=== PATIENT | male | born 1940 | race Caucasian/White ===

== ENCOUNTER 2016-12-05 10:21 | Day surgery (SDC) | payer MEDICARE, BC ==
--- NOTE | 2016-12-02 11:49 | RADIOLOGY REPORT (SQ) ---
EXAM DESCRIPTION: CHEST PA/LATERAL COMPLETED DATE/TIME: 12/02/2016 11:32 am REASON FOR STUDY: PRE OP COMPARISON: None. EXAM PARAMETERS: NUMBER OF VIEWS: two views TECHNIQUE: Digital Frontal and Lateral radiographic views of the chest acquired. RADIATION DOSE: NA LIMITATIONS: Digital processing artifact over the right lung base FINDINGS: LUNGS AND PLEURA: Mild pulmonary vascular prominence, few Jonah lines with trace fluid in the fissures, in trace fluid in the right and left lateral and posterior costophrenic sulci worrisom e for very mild fluid overload or congestive failure. No dense consolidation worrisome for pneumonia. No pneumothorax. MEDIASTINUM AND HILAR STRUCTURES: No masses or contour abnormalities. HEART AND VASCULAR STRUCTURES: No cardiomegaly BONES: No acute changes over the chest HARDWARE: Left-sided pacemaker/defibrillator, old sternotomy for CABG OTHER: No other significant finding. IMPRESSION: Mild fluid overload or congestive failure TECHNICAL DOCUMENTATION: JOB ID: [id number] [employer]- All Rights Reserved
[2016-12-02 12:02] LABS: ABSOLUTE EOSINOPHILS # (AUTO) 0.1 10^3/uL (0.0-0.6); ABSOLUTE LYMPHOCYTES (AUTO) 3.8 10^3/uL (0.5-4.7); ABSOLUTE MONOCYTES (AUTO) 1.1 10^3/uL (0.1-1.4); ABSOLUTE NEUT (AUTO) 6.2 10^3/uL (1.7-8.2); BASOPHILS % (AUTO) 0.4 % (0-2); EOSINOPHILS % (AUTO) 1.2 % (0-6); HEMATOCRIT 40.9 % (37.9-51.0); HEMOGLOBIN 13.7 g/dL (13.5-17.0); HGB HCT DIFFERENCE 0.2; LYMPHOCYTES % (AUTO) 34.1 % (13-45); MEAN CORPUSCULAR HEMOGLOBIN 30.7 pg (27.0-33.4); MEAN CORPUSCULAR HGB CONC 33.5 g/dL (32.0-36.0); MEAN CORPUSCULAR VOLUME 92 fl (80-97); RED BLOOD COUNT 4.46 10^6/uL (4.35-5.55); RED CELL DISTRIBUTION WIDTH 14.4 % (11.5-14.0); SEGMENTED NEUTROPHILS % (AUTO) 54.3 % (42-78); WHITE BLOOD COUNT 11.3 10^3/uL (4.0-10.5)
[2016-12-02 12:09] LABS: APPEARANCE,URINE CLEAR; BILIRUBIN,URINE NEGATIVE (NEGATIVE); GLUCOSE, URINE NEGATIVE (NEGATIVE); KETONES,URINE NEGATIVE (NEGATIVE); LEUKOCYTE ESTERASE,URINE NEGATIVE (NEGATIVE); NITRITE,URINE NEGATIVE (NEGATIVE); PROTEIN,URINE NEGATIVE (NEGATIVE); URINE SPECIFIC GRAVITY 1.004; UROBILINOGEN,URINE NEGATIVE mg/dL (<2.0)
[2016-12-02 12:24] LABS: ANION GAP 13 (5-19); BLOOD UREA NITROGEN 12 mg/dL (7-20); CALCIUM 8.4 mg/dL (8.4-10.2); CARBON DIOXIDE 28 mmol/L (22-30); CHLORIDE 98 mmol/L (98-107); CREATININE RESULT 0.97 mg/dL (0.52-1.25); GLUCOSE 114 mg/dL (75-110); POTASSIUM 3.8 mmol/L (3.6-5.0); SODIUM 139.4 mmol/L (137-145)
--- NOTE | 2016-12-02 23:43 | EKG REPORT ---
SEVERITY:- ABNORMAL ECG - ATRIAL-VENTRICULAR DUAL-PACED COMPLEXES : Confirmed by: Jay Frank 02-Dec-2016 23:42:00
[~2016-12-05 10:21] MED LIST: CEFAZOLIN 1 GM/D5W RTU 2 GM/100 ML RTUPB IV SCH; CEFAZOLIN 2 GM/D5W RTU 2 GM/50 ML RTUPB IV SCH; GLYCOPYRROLATE INJ 0.4 MG/2 ML VIAL ONE; LIDOCAINE 0.5% INJ-PF (5 MG/ML) 50 ML SDV INJ SCH; LIDOCAINE 2% INJ-PF (20 MG/ML) 10 ML AMPUL ONE; METOCLOPRAMIDE HCL INJ/PF 10 MG/2 ML SDV ONE; ONDANSETRON HCL INJ/PF 4 MG/2 ML SDV ONE; RINGERS SOLUTION,LACTATED 1,000 ML IV PRN
[2016-12-05] MEDS ORDERED: BUPIVACAINE HCL 0.25 % INJ/PF (2.5 MG/1 ML) 30 ML VIAL ONE (10:28)
--- NOTE | 2016-12-05 11:15 | RADIOLOGY REPORT (SQ) ---
EXAM DESCRIPTION: CHEST SINGLE VIEW COMPLETED DATE/TIME: 12/05/2016 11:07 am REASON FOR STUDY: PRE OP COMPARISON: 12/02/2016 EXAM PARAMETERS: NUMBER OF VIEWS: One view. TECHNIQUE: Single frontal radiographic view of the chest acquired. RADIATION DOSE: NA LIMITATIONS: None. FINDINGS: LUNGS AND PLEURA: Decrease in pulmonary vascular prominence compare to 12/02/2016. There are persistent mild increased interstitial markings at the bases which could be fibrosis rather than interstitial fluid. Trace fluid in the right and left lateral costophrenic sulci. No dense consolidation worrisome for pneumonia. No pneumothorax. MEDIASTINUM AND HILAR STRUCTURES: No masses. Contour normal. HEART AND VASCULAR STRUCTURES: Heart normal in size. Normal vasculature. BONES: No acute findings. HARDWARE: Old sternotomy for CABG, left-sided pacemaker/defibrillator OTHER: No other significant finding. IMPRESSION: Decrease in pulmonary vascular congestion compared to prior films 12/02/2016 TECHNICAL DOCUMENTATION: JOB ID: [id number]
[2016-12-05] MEDS ORDERED: MIDAZOLAM 2 MG/2 ML INJ ONE (12:31)
[2016-12-05] MEDS ORDERED: PROPOFOL INJ 200 MG/20 ML VIAL IV ONE (12:32)
[2016-12-05] MEDS ORDERED: MORPHINE SULFATE 10 MG/ML INJ ONE (12:32)
[2016-12-05] MEDS ORDERED: LIDOCAINE 1% INJ-PF (10 MG/ML) 30 ML SDV ONE (12:57)
[2016-12-05] MEDS ORDERED: ONDANSETRON HCL INJ/PF 4 MG/2 ML SDV IV PRN ×2 (13:54→14:45)
[2016-12-05] MEDS ORDERED: MORPHINE SULFATE 10 MG/ML INJ IV PRN (13:54)
[2016-12-05] MEDS ORDERED: OXYCODONE-ACETAMINOPHEN 5-325 MG TABLET PO PRN (13:54)
--- NOTE | 2016-12-05 13:57 | PDOC DISCHARGE SUMMARY ---
Discharge Summary (SDC) - Discharge Final Diagnosis: Left Lipoma Radial Nerve Compression Date of Surgery: 12/05/16 Discharge Date: 12/05/16 Condition: Good Treatment or Instructions: Schedule Follow Up w/ Dr. Jose Esteves @ [facility] to be seen [place]: [place]: [place]: May remove dressing on postop day #3, keep incision covered and dry. Ice and elevate May begin finger range of motion attempting to make full fist. Stool softener of choice when on pain medication. Prescriptions: Oxycodone HCl/Acetaminophen [Percocet 5-325 mg Tablet] 1 - 2 tab PO ASDIR PRN # 40 tablet PRN Reason: Discharge Diet: As Tolerated Respiratory Treatments at Home: Deep Breathing/Coughing Report the Following to Your Physician Immediately: Fever over 101 Degrees, Unusual Bleeding, Redness, Swelling, Warmth, Increased Soreness
--- NOTE | 2016-12-05 14:06 | Operative Report ---
Operative Report DATE OF SURGERY: 12/05/16 PREOPERATIVE DIAGNOSIS: Left forearm soft tissue tumor OPERATION: reSection left forearm tumor SURGEON: EFFIE COLLADO ANESTHESIA: LMAC TISSUE REMOVED OR ALTERED: 7 x 5 cm soft tissue mass ESTIMATED BLOOD LOSS: Minimal PROCEDURE: Dr. marie provides exposure and the mobilization retraction of the radial nerve. The margins of the tumor then developed using sharp and blunt dissection. The tumor is then delivered from the field and a stock clamped with a hemostat. The suture was then used to provide hemostasis at the vascular stalk to the tumor. The limb was delivered from the field and sent to pathology for histologic evaluation. The tourniquet was deflated. The wound is irrigated. Hemostasis obtained with bipolar cautery. The wound was then closed in layers with interrupted Vicryl followed by anastasiia. Compressive dressing is applied and patient was returned to the PACU in satisfactory condition
[2016-12-05] MEDS ORDERED: OXYCODONE HCL IR 5 MG TABLET PO PRN (14:45)
[2016-12-05 16:34] VITALS: BP 133/68
--- NOTE | 2016-12-05 18:26 | Operative Report ---
Operative Report DATE OF SURGERY: 12/05/16 PREOPERATIVE DIAGNOSIS: Left Lipoma w/ Radial Nerve Compression POSTOPERATIVE DIAGNOSIS: Same OPERATION: Radial Neurolysis SURGEON: JASSI SOLIS 1ST TAX ADVISOR: EFFIE COLLADO ANESTHESIA: GA TISSUE REMOVED OR ALTERED: Mass Forearm COMPLICATIONS: None ESTIMATED BLOOD LOSS: Minimal INTRAOPERATIVE FINDINGS: Radial Nerve entering the lipoma w/ fasicular dissection in the tumor plane PROCEDURE: Procedure In Detail: Patient was seen and evaluated in the preoperative holding area. The LEFT upper extremity was initialized and marked. Patient received 2g of Ancef IV for bacterial prophylaxis. Patient was taken back to the operative room where transferred to the operative table and placed under anesthesia. Once they were adequately anesthetized a nonsterile tourniquet was placed on the upper extremity. A surgical team debriefing was performed ensuring all instrumentation was available, the surgical procedure was discussed with possible concerns reviewed. The upper extremity was prepped with ChloraPrep curvilinear skin incision was made over the antecubital fossa and distally along the and draped in a sterile fashion. A timeout was done identifying correct patient, procedure and extremity everyone in attendance agree with this and verbalized no concerns. The extremity was elevated the tourniquet was inflated to 250 mmHg. 30 cc of 50: 50 mixture of 0.25% Marcaine and 1% lidocaine was utilized for local anesthesia. A curvilinear skin incision was made lateral to the biceps muscle along the lateral border of the brachial radialis. Blunt dissection was performed any peripheral vasculature was coagulated bipolar cautery. The tissue plane between the brachialis and brachioradialis was developed bluntly. At that point patient was transitioned to general anesthesia and was unable to tolerate local anesthesia. The radial nerve proper was identified proximal to the lipoma at the brachialis, brachioradialis interval and followed as it coursed past the ECRL and brachialis. I then continued to develop the plane along the medial border of the brachioradialis to isolate the nerve from the adjacent lipoma. The nerve fascicles entered and the nerve stimulator was utilized confirming diagnosis of the PIN, branch of the ECRB. The mass splayed the nerve fasicles superficially over the mass. The capsule was incised to further isolate the small nerve fascicles. I then dissected distal to the mass at the arcade of [place] identifying normal-appearing PIN. The capsule of the lipoma was then incised to further isolate the mass from surround neurologic structures. See Dr. Collado's note for details of mass excision and closure. At completion of the mass excision inspection of the nerve was performed. There was notable patulous of the nerve after removal of the lipoma. I was able to identify all 3 terminal branches of the radial nerve including PIN, superficial radial and ECRB. Any peripheral vasculature along the leash of haily was coagulated with bipolar cautery.
== END 2016-12-05 16:37 | disposition home or self-care (01) ==
LOC: OROUT 10:21
PROVIDERS: ATTEND Orthopaedic Surgery
PROC: 0JQH0ZZ Repair Left Lower Arm Subcutaneous Tissue and Fascia, Open Approach (ICD-10-PCS; 2016-12-05)
PROC: 0JBH0ZZ Excision of Left Lower Arm Subcutaneous Tissue and Fascia, Open Approach (ICD-10-PCS; 2016-12-05)
PROC: 01N60ZZ Release Radial Nerve, Open Approach (ICD-10-PCS; principal; 2016-12-05 12:30)
DX: G56.32 Lesion of radial nerve, left upper limb (principal); D17.22 Benign lipomatous neoplasm of skin and subcutaneous tissue of left arm; K21.9 Gastro-esophageal reflux disease without esophagitis; I10 Essential (primary) hypertension; I48.91 Unspecified atrial fibrillation; Z79.82 Long term (current) use of aspirin; Z79.899 Other long term (current) drug therapy; Z86.14 Personal history of Methicillin resistant Staphylococcus aureus infection; Z87.891 Personal history of nicotine dependence; I25.2 Old myocardial infarction; Z95.0 Presence of cardiac pacemaker; Z95.1 Presence of aortocoronary bypass graft
CPT/HCPCS: 93005; 36415 ×2; 82962; 84132; 85025; 80048; 81001; 88304 ×2; 71020; 71010; 93010; 64708; 11406; 12034; J2250; J3490 ×2; J2765; J2270; J2405; J2704; J0690; 1810

== ENCOUNTER 2017-06-23 08:54 | Day surgery (SDC) | payer MEDICARE, BC ==
[2017-06-16 12:10] LABS: APPEARANCE,URINE CLEAR; BILIRUBIN,URINE NEGATIVE (NEGATIVE); COLOR,URINE YELLOW; GLUCOSE, URINE NEGATIVE (NEGATIVE); KETONES,URINE NEGATIVE (NEGATIVE); LEUKOCYTE ESTERASE,URINE NEGATIVE (NEGATIVE); NITRITE,URINE NEGATIVE (NEGATIVE); PROTEIN,URINE NEGATIVE (NEGATIVE); URINE SPECIFIC GRAVITY 1.012; UROBILINOGEN,URINE NEGATIVE mg/dL (<2.0)
[2017-06-16 12:12] LABS: ABSOLUTE EOSINOPHILS # (AUTO) 0.1 10^3/uL (0.0-0.6); ABSOLUTE LYMPHOCYTES (AUTO) 4.6 10^3/uL (0.5-4.7); ABSOLUTE MONOCYTES (AUTO) 0.9 10^3/uL (0.1-1.4); ABSOLUTE NEUT (AUTO) 5.8 10^3/uL (1.7-8.2); BASOPHILS % (AUTO) 0.4 % (0-2); EOSINOPHILS % (AUTO) 0.8 % (0-6); HEMATOCRIT 41.7 % (37.9-51.0); HEMOGLOBIN 14.4 g/dL (13.5-17.0); LYMPHOCYTES % (AUTO) 40.1 % (13-45); MEAN CORPUSCULAR HEMOGLOBIN 31.2 pg (27.0-33.4); MEAN CORPUSCULAR HGB CONC 34.6 g/dL (32.0-36.0); MEAN CORPUSCULAR VOLUME 90 fl (80-97); MONOCYTES % (AUTO) 7.6 % (3-13); PLATELET COUNT 180 10^3/uL (150-450); RED BLOOD COUNT 4.62 10^6/uL (4.35-5.55); RED CELL DISTRIBUTION WIDTH 14.8 % (11.5-14.0); SEGMENTED NEUTROPHILS % (AUTO) 51.1 % (42-78); TOTAL CELLS COUNTED % (AUTO) 100 %; WHITE BLOOD COUNT 11.4 10^3/uL (4.0-10.5)
[2017-06-16 12:34] LABS: ANION GAP 14 (5-19); BLOOD UREA NITROGEN 13 mg/dL (7-20); CALCIUM 10.7 mg/dL (8.4-10.2); CARBON DIOXIDE 27 mmol/L (22-30); CHLORIDE 102 mmol/L (98-107); GLUCOSE 102 mg/dL (75-110); POTASSIUM 4.6 mmol/L (3.6-5.0); SODIUM 142.9 mmol/L (137-145)
--- NOTE | 2017-06-16 13:00 | RADIOLOGY REPORT (SQ) ---
EXAM DESCRIPTION: CHEST PA/LATERAL COMPLETED DATE/TIME: 06/16/2017 12:17 pm REASON FOR STUDY: PRE OP COMPARISON: Chest films 12/05/2016, 12/02/2016 EXAM PARAMETERS: NUMBER OF VIEWS: two views TECHNIQUE: Digital Frontal and Lateral radiographic views of the chest acquired. RADIATION DOSE: NA LIMITATIONS: none FINDINGS: LUNGS AND PLEURA: Lungs are hyperinflated from obstructive disease. Calcified granuloma l eft lung base. No acute infiltrates. No pleural effusion. No pneumothorax. MEDIASTINUM AND HILAR STRUCTURES: No masses or contour abnormalities. HEART AND VASCULAR STRUCTURES: No cardiomegaly. Old sternotomy and CABG BONES: No acute findings. Osteoporotic HARDWARE: Left-sided pacemaker/defibrillator OTHER: No other significant finding. IMPRESSION: No acute changes TECHNICAL DOCUMENTATION: JOB ID: [id number] [employer]- All Rights Reserved
--- NOTE | 2017-06-16 13:10 | EKG REPORT ---
SEVERITY:- ABNORMAL ECG - ATRIAL-SENSED VENTRICULAR-PACED COMPLEXES PROBABLE LEFT ATRIAL ABNORMALITY : Confirmed by: Ryan Aviles MD 16-Jun-2017 13:09:36
[~2017-06-23 08:54] MED LIST changes: +BUPIVACAINE HCL 0.5 % INJ/PF 30 ML SDV ONE; -CEFAZOLIN 1 GM/D5W RTU 2 GM/100 ML RTUPB IV SCH; +CEFAZOLIN 2 GM/D5W RTU 2 GM/50 ML RTUPB IV PRN; -CEFAZOLIN 2 GM/D5W RTU 2 GM/50 ML RTUPB IV SCH; -GLYCOPYRROLATE INJ 0.4 MG/2 ML VIAL ONE; +LACTATED RINGERS 1000 ML IV PRN; -LIDOCAINE 0.5% INJ-PF (5 MG/ML) 50 ML SDV INJ SCH; +LIDOCAINE 0.5% INJ-PF (5 MG/ML) 50 ML SDV SUBCUT PRN; -LIDOCAINE 2% INJ-PF (20 MG/ML) 10 ML AMPUL ONE; -METOCLOPRAMIDE HCL INJ/PF 10 MG/2 ML SDV ONE; -ONDANSETRON HCL INJ/PF 4 MG/2 ML SDV ONE; -RINGERS SOLUTION,LACTATED 1,000 ML IV PRN
[2017-06-23 09:31] VITALS: BP 134/82
[2017-06-23 09:52] LABS: POTASSIUM 4.3 mmol/L (3.6-5.0)
[2017-06-23] MEDS ORDERED: ALBUTEROL SULFATE 0.083% NEB 2.5 MG/3 ML AMPUL NEB ONE (09:53)
== END 2017-06-23 12:15 | disposition home or self-care (01) ==
LOC: OROUT 08:54
PROVIDERS: ATTEND Orthopaedic Surgery
DX: Z01.818 Encounter for other preprocedural examination (principal); Z95.810 Presence of automatic (implantable) cardiac defibrillator
CPT/HCPCS: 93005; 36415 ×2; 82947; 84132; 85025; 80048; 81001; 83036; 71046; 93010; 94640; A9270; J0690